=== PATIENT | female | born 1955 | race Caucasian/White ===

== ENCOUNTER 2023-09-04 10:16 | Outpatient (CLI) | payer MEDICARE | END 2023-09-04 10:17 | disposition home or self-care (01) | LOC: CSHMAMMO 10:16 | PROVIDERS: ATTEND Nurse Practitioner | DX: M85.89 Other specified disorders of bone density and structure, multiple sites (principal); D32.9 Benign neoplasm of meninges, unspecified; J98.4 Other disorders of lung; M47.812 Spondylosis without myelopathy or radiculopathy, cervical region | CPT/HCPCS: 77080 ==